=== PATIENT | female | born 1945 | race Caucasian/White ===

== ENCOUNTER 2019-08-16 15:27 | Observation (INO) ==
[2019-08-16] MEDS ORDERED: TYGACIL 50 MG VIAL 100 MG in NS 100 ML IV 100 ML IV ONE (15:46)
[2019-08-16] MEDS: ZYLOPRIM PO SCH (16:22)
[2019-08-16] MEDS ORDERED: PROVENTIL NEB TX 0.083% 2.5MG/ 3ML NEB PRN (16:26)
[2019-08-16] MEDS: LR 1000 ML IV 1,000 ML IV SCH (16:34)
[2019-08-16 16:40] LABS: BASOPHILS # (AUTO) 0.2 X10^3/uL (0.0-0.1); BASOPHILS % (AUTO) 1.6 % (0.2-1.0); EOSINOPHILS # (AUTO) 0.5 x10^3/uL (0.0-0.2); EOSINOPHILS % (AUTO) 4.8 % (0.9-2.9); HEMATOCRIT 36.2 % (36.0-47.0); HEMOGLOBIN 12.5 g/dL (12.0-16.0); LYMPHOCYTES # (AUTO) 2.2 X10^3/uL (1.3-2.9); LYMPHOCYTES % (AUTO) 22.4 % (21.0-51.0); MEAN CORPUSCULAR HEMOGLOBIN 33.6 pg (27.0-34.0); MEAN CORPUSCULAR HGB CONC 34.5 g/dL (33.0-35.0); MEAN CORPUSCULAR VOLUME 97.5 fL (80.0-100.0); MEAN PLATELET VOLUME 9.2 fL (7.4-11.0); MONOCYTES # (AUTO) 0.8 x10^3/uL (0.3-0.8); MONOCYTES % (AUTO) 8.4 % (0.0-13.0); NEUTROPHILS # (AUTO) 6.1 x10^3/uL (2.2-4.8); NEUTROPHILS % (AUTO) 62.8 % (42.0-75.0); PLATELET COUNT 271 X10^3/uL (150.0-450.0); RED BLOOD COUNT 3.71 X10^6/uL (3.5-5.4); RED CELL DISTRIBUTION WIDTH 17.1 % (11.6-16.5); WHITE BLOOD COUNT 9.8 X10^3/uL (3.6-10.0)
[2019-08-16 16:58] LABS: ALANINE AMINOTRANSFERASE 19 Units/L (12-78); ALBUMIN 3.7 g/dL (3.4-5.0); ALKALINE PHOSPHATASE 100 Units/L (46-116); ASPARTATE AMINO TRANSFERASE 20 Units/L (15-37); BLOOD UREA NITROGEN 24 mg/dL (7-18); CALCIUM 10.5 mg/dL (8.5-10.1); CARBON DIOXIDE 30.6 mmol/L (21-32); CHLORIDE 99 mmol/L (98-107); CREATININE 1.26 mg/dL (0.55-1.02); SODIUM 138 mmol/L (136-145); TOTAL PROTEIN 7.2 g/dL (6.4-8.2); eGFR NON BLACK RACES 44 (>60)
--- NOTE | 2019-08-16 17:46 | RAD ---
HISTORY: UTI that failed outpatient treatment. Study: PA and lateral chest. Comparison: None Findings: The trachea is midline. The cardiac silhouette is unremarkable. Nonspecific eventration of the right hemidiaphragm. Chronic emphysematous changes. Ectatic thoracic aorta. No obvious focal consolidation, pleural effusion, or pneumothorax. The bony thorax is unremarkable. Nonspecific 1.2 cm calcification is seen overlying the left breast. IMPRESSION: 1. No acute cardiopulmonary disease. 2. Left breast calcification as above. Recommend clinical correlation and outpatient mammography. Reported By:
[2019-08-16 18:08] LABS: BILIRUBIN,URINE NEGATIVE (NEGATIVE); BLOOD/HEMOGLOBIN,URINE NEGATIVE (NEGATIVE); GLUCOSE, URINE NEGATIVE (NEGATIVE); KETONES,URINE NEGATIVE (NEGATIVE); LEUKOCYTE ESTERASE ,URINE NEGATIVE (NEGATIVE); NITRITES,URINE NEGATIVE (NEGATIVE); PH,URINE 6.5 (5.0 - 8.0); PROTEIN,URINE NEGATIVE (NEGATIVE); UROBILINOGEN,URINE NORMAL (NORMAL)
[2019-08-16] MEDS ORDERED: DILAUDID INJ IVP PRN (18:09)
[2019-08-16 18:10] LABS: APPEARANCE,URINE CLEAR (CLEAR); COLOR,URINE YELLOW (YELLOW)
[2019-08-16 18:32] VITALS: BMI 29.5
[2019-08-16] MEDS: PULMICORT NEB TX 0.5 MG NEB SCH (20:24)
[2019-08-16] MEDS ORDERED: TYLENOL 325 MG TAB PO PRN (22:07)
--- NOTE | 2019-08-17 00:28 | RAD ---
AP abdomen Indication: Right-sided abdominal pain Comparison: None Findings: The bowel gas pattern is nonspecific. No dilated bowel loops identified. No suspicious calcifications or gross free air. Cholecystectomy clips are noted. There is moderate to advanced multilevel spondylosis with mild dextroscoliosis centered at L1. Impression: No acute abdominal process. Reported By:
[2019-08-17] MEDS: LR 1000 ML IV 1,000 ML IV SCH ×2 (03:46)
[2019-08-17] MEDS ORDERED: TYGACIL 50 MG VIAL 50 MG in NS 100 ML IV 100 ML IV SCH (06:00)
[2019-08-17] MEDS ORDERED: TOPROL XL PO SCH (09:00)
[2019-08-17] MEDS ORDERED: LASIX PO SCH (09:00)
[2019-08-17] MEDS ORDERED: ZESTRIL TAB 40 MG PO SCH (09:00)
[2019-08-17] MEDS: PULMICORT NEB TX 0.5 MG NEB SCH (09:01)
[2019-08-17] MEDS ORDERED: TOPROL XL PO ONE (09:25)
[2019-08-17] MEDS: ZYLOPRIM PO SCH (10:00)
[2019-08-17 11:24] VITALS: BP 147/68
== END 2019-08-17 11:05 | disposition home or self-care (01) ==
LOC: MED/SURG
PROVIDERS: ADMIT Obstetrics & Gynecology Obstetrics; ATTEND Obstetrics & Gynecology Obstetrics
DX: N64.89 Other specified disorders of breast; J30.9 Allergic rhinitis, unspecified; N39.0 Urinary tract infection, site not specified
CPT/HCPCS: 36415; 71020; 71046; 74000; 74018; 80053; 81003; 85025; 87086; 94640; 96367; 97161; A4222; G0378; J3243; J7050; J7120; J7613; J7626